=== PATIENT | male | born 1945 | race Caucasian/White ===

== ENCOUNTER → 2017-01-06 | Outpatient (CLI) | payer MEDICARE ==
[~2017-01-06] MED LIST: ALBU8.5H3 IH; ALBU8.5H3 INH; ALBU8.5H5 INH; AMIO200T PO; AMIO200T42 PO; BUDE10.22 IH; DIGO125T PO; DIGO125T6 PO; ENOX80SY5 SQ; FLUT16SP NS; FURO-92 PO; FURO40TA6 PO; GUAI600T22 PO; GUAI600T53 PO; LEVA15HF2 INH; LEVO100T5 PO; LEVO25TA4 PO; LISI2.5T PO; LISI5TAB7 PO; MAGN400T26 PO; MAGN400T7 PO; POTA20PA8 PO; POTA20TA14 PO; PRED10TA14 PO; SIMV20TA PO; SIMV20TA3 PO; SPIR25TA PO; SPIR25TA3 PO; TIOT18CA INH; WARF7.5T6 PO; WARF7.5T6 PO-COUM
== END | disposition home or self-care (01) ==
LOC: CFH 09:38
PROVIDERS: ATTEND Internal Medicine Cardiovascular Disease
DX: R06.02 Shortness of breath (principal); Z79.899 Other long term (current) drug therapy
CPT/HCPCS: 71020

== ENCOUNTER → 2017-06-22 | Outpatient (CLI) | payer MEDICARE ==
[~2017-06-22] MED LIST changes: -ALBU8.5H3 IH; -ALBU8.5H3 INH; +ALBU8.5H8 IH; +ALBU8.5H8 INH; -GUAI600T22 PO; +GUAI600T31 PO; -GUAI600T53 PO; +GUAI600T80 PO; -LEVA15HF2 INH; +LEVA15HF4 INH; +POTA20PA25 PO; -POTA20PA8 PO
== END | disposition home or self-care (01) ==
LOC: CFH 10:54
PROVIDERS: ATTEND Internal Medicine
DX: I10 Essential (primary) hypertension (principal); E78.2 Mixed hyperlipidemia; I48.0 Paroxysmal atrial fibrillation; I42.8 Other cardiomyopathies
CPT/HCPCS: 71020

== ENCOUNTER 2017-07-02 08:59 | Day surgery (SDC) | payer MEDICARE ==
[~2017-07-02] VITALS: Ht 172.7 cm; Wt 79.1 kg
[2017-07-02 09:30] VITALS: BP 168/106
[2017-07-02] MEDS ORDERED: BECL8.7A6 INH (09:45)
[2017-07-02] MEDS ORDERED: ALBU18HF INH (09:45)
[2017-07-02] MEDS ORDERED: EZET10TA18 PO (09:45)
[2017-07-02] MEDS ORDERED: RIVA20TA PO (09:47)
[2017-07-02] MEDS ORDERED: ALPR0.25 PO (09:47)
[2017-07-02 09:51] LABS: BASOPHILS # (AUTO) 0.04 x10^3/uL (0-0.1); BASOPHILS % (AUTO) 1 % (0-1); EOSINOPHILS # (AUTO) 0.09 x10^3/uL (0-0.4); EOSINOPHILS % (AUTO) 1 % (1-7); LYMPHOCYTES # (AUTO) 1.69 x10^3/uL (1-3.4); LYMPHOCYTES % (AUTO) 21 % (22-44); MD NO; MEAN CORPUSCULAR HEMOGLOBIN 31.2 pg (27.5-34.5); MEAN CORPUSCULAR HGB CONC 33.6 g/dL (33.2-36.2); MEAN CORPUSCULAR VOLUME 92.9 fL (81-97); MEAN PLATELET VOLUME 7.9 fL (7.4-10.4); MONOCYTES # (AUTO) 0.68 x10^3/uL (0.2-0.8); MONOCYTES % (AUTO) 9 % (2-9); NEUTROPHILS # (AUTO) 5.41 x10^3/uL (1.8-6.8); NEUTROPHILS % (AUTO) 68 % (42-75); PLATELET COUNT 226 x10^3/uL (130-400); RED BLOOD COUNT 5.46 x10^6/uL (4.38-5.82); RED CELL DISTRIBUTION WIDTH 14.7 % (9.4-14.8)
[2017-07-02] MEDS ORDERED: GUAI100G2 PO (09:51)
[2017-07-02] MEDS ORDERED: CHOL2000 PO (09:51)
[2017-07-02 10:00] LABS: ANION GAP 6 mmol/L (5-15); CALCIUM 8.5 mg/dL (8.5-10.1); CHLORIDE 110 mmol/L (98-107); CREATININE 1.33 mg/dL (0.7-1.3)
[2017-07-02] MEDS ORDERED: PROPOFOL 10 MG/ML, 20ML ONE (11:15)
== END 2017-07-02 12:33 ==
LOC: CACL 08:59
PROVIDERS: ATTEND Internal Medicine Cardiovascular Disease
DX: I48.92 Unspecified atrial flutter (principal); I10 Essential (primary) hypertension; E78.5 Hyperlipidemia, unspecified; E03.9 Hypothyroidism, unspecified; Z87.39 Personal history of other diseases of the musculoskeletal system and connective tissue
CPT/HCPCS: 36415; 80048; 85025; 92960; J2704

== ENCOUNTER → 2017-09-15 | Outpatient (CLI) | payer MEDICARE ==
[~2017-09-15] MED LIST changes: +ALBU18HF INH; +ALPR0.25 PO; +BECL8.7A6 INH; +CHOL2000 PO; -DIGO125T6 PO; +DIGO125T81 PO; +EZET10TA18 PO; +GUAI100G2 PO; +RIVA20TA PO
== END | disposition home or self-care (01) ==
LOC: LAB 10:46
PROVIDERS: ATTEND Internal Medicine Cardiovascular Disease
DX: I42.8 Other cardiomyopathies (principal)
CPT/HCPCS: 71046

== ENCOUNTER → 2017-09-21 | Outpatient (CLI) | payer MEDICARE | END | disposition home or self-care (01) | LOC: CVU 12:15 | PROVIDERS: ATTEND Internal Medicine Cardiovascular Disease | DX: I42.8 Other cardiomyopathies (principal); I48.91 Unspecified atrial fibrillation; I51.7 Cardiomegaly; E78.5 Hyperlipidemia, unspecified; Z87.891 Personal history of nicotine dependence | CPT/HCPCS: 93306 ==

== ENCOUNTER → 2018-04-25 | Outpatient (CLI) | payer MEDICARE ==
[~2018-04-25] MED LIST changes: -SPIR25TA3 PO; +SPIR25TA5 PO; +WARF7.5T46 PO; +WARF7.5T46 PO-COUM; -WARF7.5T6 PO; -WARF7.5T6 PO-COUM
== END | disposition home or self-care (01) ==
LOC: CFH 11:38
PROVIDERS: ATTEND Internal Medicine Cardiovascular Disease
DX: E78.2 Mixed hyperlipidemia (principal); I10 Essential (primary) hypertension
CPT/HCPCS: 71046

== ENCOUNTER → 2018-07-28 | Outpatient (CLI) | payer MEDICARE | END | disposition home or self-care (01) | LOC: CFH 08:32 | PROVIDERS: ATTEND Internal Medicine Critical Care Medicine | DX: R06.02 Shortness of breath (principal); G47.30 Sleep apnea, unspecified; E78.5 Hyperlipidemia, unspecified; E03.9 Hypothyroidism, unspecified; M17.10 Unilateral primary osteoarthritis, unspecified knee; Z79.899 Other long term (current) drug therapy | CPT/HCPCS: 71250 ==

== ENCOUNTER → 2018-11-22 | Outpatient (CLI) | payer MEDICARE | END | disposition home or self-care (01) | LOC: CFH 09:35 | PROVIDERS: ATTEND Internal Medicine Cardiovascular Disease | DX: I42.8 Other cardiomyopathies (principal); I34.0 Nonrheumatic mitral (valve) insufficiency; I48.0 Paroxysmal atrial fibrillation; I12.9 Hypertensive chronic kidney disease with stage 1 through stage 4 chronic kidney disease, or unspecified chronic kidney disease; N18.9 Chronic kidney disease, unspecified; R06.00 Dyspnea, unspecified; E03.9 Hypothyroidism, unspecified; E78.2 Mixed hyperlipidemia | CPT/HCPCS: 71046; 93306 ==

== ENCOUNTER 2019-06-03 21:12 | Inpatient (IN) | payer MEDICARE ==
[~2019-06-03] VITALS: Ht 172.7 cm; Wt 90.3 kg
[~2019-06-03 21:12] MED LIST changes: -EZET10TA18 PO; +EZET10TA70 PO; -FLUT16SP NS; +FLUT16SP24 NS; -MAGN400T7 PO; +MAGN400T9 PO
[2019-06-03] MEDS ORDERED: ALBUTEROL SULFATE 2.5 MG/3 ML ONE (21:19)
[2019-06-03] MEDS ORDERED: MAGNESIUM SULFATE PMX 2GM/50ML 50 ML ONE (21:29)
[2019-06-03] MEDS ORDERED: ALBUTEROL 0.5%, 20ML NPPB SCH (21:30)
[2019-06-03] MEDS ORDERED: MAGNESIUM SULFATE PMX 2GM/50ML 50 ML IV ONE (21:30)
[2019-06-03] MEDS ORDERED: SODIUM CHLORIDE FLUSH 10ML SYR IVF ONE (21:30)
[2019-06-03 21:43] LABS: BASOPHILS # (AUTO) 0.06 x10^3/uL (0-0.1); BASOPHILS % (AUTO) 1 % (0-1); EOSINOPHILS % (AUTO) 6 % (1-7); LYMPHOCYTES # (AUTO) 1.97 x10^3/uL (1-3.4); LYMPHOCYTES % (AUTO) 27 % (22-44); MD NO; MEAN CORPUSCULAR HEMOGLOBIN 32.3 pg (27.5-34.5); MEAN CORPUSCULAR HGB CONC 32.7 g/dL (33.2-36.2); MEAN CORPUSCULAR VOLUME 98.9 fL (81-97); MEAN PLATELET VOLUME 7.8 fL (7.4-10.4); MONOCYTES # (AUTO) 0.74 x10^3/uL (0.2-0.8); MONOCYTES % (AUTO) 10 % (2-9); NEUTROPHILS # (AUTO) 4.07 x10^3/uL (1.8-6.8); NEUTROPHILS % (AUTO) 56 % (42-75); PLATELET COUNT 245 x10^3/uL (130-400); RED BLOOD COUNT 5.21 x10^6/uL (4.38-5.82); RED CELL DISTRIBUTION WIDTH 13.5 % (9.4-14.8)
--- NOTE | 2019-06-03 21:44 | NUR ---
PT BIB [facility] FOR SOB. PT HAS A HISTORY OF COPD. PT REPORTS A RECENT COUGH. PT USED NEB, AND INHALERS AT HOME. PT WAS FOUND IN THE 70'S PULSE OX BY EMS. PT HAS A HISTORY OF AFIB AND REPORTS ON WEDNESDAY HE IS SUPPOSED TO GET CARDIOVERTED BY DR MOREJON. VS STABLE AT THIS TIME. BRICKLAYER'S ASSISTANT ON. AFIB NOTED. AT BEDSIDE. WILL CONTINUE TO MONITOR.
[2019-06-03] MEDS ORDERED: AMIO100T4 PO (21:47)
[2019-06-03] MEDS ORDERED: BEVESPI INHALER (21:49)
[2019-06-03 21:55] LABS: ALANINE AMINOTRANSFERASE 55 U/L (12-78); ANION GAP 4 mmol/L (5-15); CALCIUM 9.6 mg/dL (8.5-10.1); CHLORIDE 102 mmol/L (98-107); CREATININE 1.43 mg/dL (0.7-1.3)
--- NOTE | 2019-06-03 21:59 | NUR ---
RT IN ROOM BIPAP OFF PER DR OSMAN. NC ON AT 2L.
[2019-06-03 22:00] LABS: ALKALINE PHOSPHATASE 67 U/L (45-117); BILIRUBIN,TOTAL 0.3 mg/dL (0.2-1.0); INTERNATIONAL NORMALIZED RATIO 1.35 (0.93-1.1); TOTAL PROTEIN 7.9 g/dL (6.4-8.2); TROPONIN I < 0.015 ng/mL (0.000-0.045)
--- NOTE | 2019-06-03 22:01 | NUR ---
DR OSMAN IN ROOM UPDATING PATIENT
[2019-06-03] MEDS ORDERED: DILTIAZEM 5 MG/ML, 5ML ONE (22:09)
[2019-06-03] MEDS: methylPREDNISolone SOD SUCC 125 MG/2 ML IVPush SCH (22:30)
[2019-06-03] MEDS ORDERED: DILTIAZEM 5 MG/ML, 5ML IVPush ONE (22:30)
[2019-06-03] MEDS ORDERED: ACETAMINOPHEN 325 MG TABLET PO PRN (22:30)
[2019-06-03 22:55] LABS: TROPONIN I < 0.015 ng/mL (0.000-0.045)
--- NOTE | 2019-06-03 23:05 | NUR ---
REPORT CALLED TO [facility]
[2019-06-03 23:48] VITALS: BP 141/80
[2019-06-04] MEDS ORDERED: ALBUTEROL/IPRATROPIUM 2.5MG/0.5MG, 3 ML ONE ×2 (00:18→12:30)
[2019-06-04] MEDS ORDERED: SENNA/DOCUSATE TABLET PO PRN (02:00)
[2019-06-04 02:13] VITALS: BP 113/58
[2019-06-04] MEDS: DILTIAZEM 125 MG in SODIUM CHLORIDE 0.9% 100 ML IV SCH ×2 (02:18→11:08)
[2019-06-04 03:10] VITALS: BP 130/53
[2019-06-04 04:47] LABS: MD YES; MEAN CORPUSCULAR HEMOGLOBIN 32.3 pg (27.5-34.5); MEAN CORPUSCULAR HGB CONC 32.9 g/dL (33.2-36.2); MEAN PLATELET VOLUME 7.9 fL (7.4-10.4); PLATELET COUNT 236 x10^3/uL (130-400); RED BLOOD COUNT 4.84 x10^6/uL (4.38-5.82); RED CELL DISTRIBUTION WIDTH 13.6 % (9.4-14.8)
[2019-06-04 04:57] LABS: ALBUMIN 3.6 g/dL (3.4-5.0); ANION GAP 5 mmol/L (5-15); CALCIUM 9.2 mg/dL (8.5-10.1); CHLORIDE 103 mmol/L (98-107)
[2019-06-04 05:04] LABS: ALANINE AMINOTRANSFERASE 51 U/L (12-78); ALKALINE PHOSPHATASE 59 U/L (45-117); BILIRUBIN,TOTAL 0.7 mg/dL (0.2-1.0); CREATININE 1.46 mg/dL (0.7-1.3); TOTAL PROTEIN 7.3 g/dL (6.4-8.2); TROPONIN I < 0.015 ng/mL (0.000-0.045)
[2019-06-04] MEDS: methylPREDNISolone SOD SUCC 125 MG/2 ML IVPush SCH ×4 (05:06→23:34)
[2019-06-04 05:08] VITALS: BP 111/61
[2019-06-04] MEDS ORDERED: ALBUTEROL 0.5%, 20ML NPPB SCH (06:00)
[2019-06-04] MEDS ORDERED: ALBUTEROL SULFATE 2.5 MG/3 ML NPPB SCH (07:00)
[2019-06-04 08:43] VITALS: BP 128/59
[2019-06-04] MEDS: POLYETHYLENE GLYCOL 17 GM PACKET PO SCH (08:44)
[2019-06-04] MEDS ORDERED: RIVAROXABAN 20 MG TABLET PO SCH (10:30)
[2019-06-04] MEDS ORDERED: LEVOTHYROXINE 100 MCG TABLET PO SCH (10:30)
[2019-06-04] MEDS ORDERED: AMIODARONE 200 MG TABLET PO SCH (10:30)
[2019-06-04] MEDS ORDERED: PRED10TA PO (10:38)
[2019-06-04] MEDS ORDERED: GABA-826 PO (10:38)
[2019-06-04] MEDS ORDERED: TRIA1TAB3 PO (10:38)
[2019-06-04] MEDS ORDERED: AMIO200T42 PO (10:38)
[2019-06-04] MEDS ORDERED: DOXA2TAB9 PO (10:38)
[2019-06-04] MEDS: AMIODARONE 200 MG TABLET HOMEMEDPO SCH ×2 (12:00→20:19)
[2019-06-04] MEDS: EZETIMIBE 10 MG TABLET HOMEMEDPO SCH (12:00)
[2019-06-04] MEDS: LEVOTHYROXINE 100 MCG TABLET HOMEMEDPO SCH (12:00)
[2019-06-04] MEDS: ALBUTEROL/IPRATROPIUM 2.5MG/0.5MG, 3 ML NPPB SCH ×2 (12:44→15:10)
[2019-06-04 15:19] VITALS: BP 156/79
[2019-06-04] MEDS ORDERED: RIVAROXABAN 20 MG TABLET HOMEMEDPO SCH (17:00)
[2019-06-04 18:38] VITALS: BP 151/79
[2019-06-04] MEDS ORDERED: MAGNESIUM SULFATE PMX 2GM/50ML 50 ML IV ONE (19:00)
[2019-06-04] MEDS ORDERED: CYCL-259 PO (19:16)
[2019-06-04 19:35] LABS: BAND#(MANUAL) 0.11 x10^3/uL; BANDS%(MANUAL) 2 % (0-7); LYMPH#(MANUAL) 0.38 x10^3/uL (1-3.4); LYMPHS% (MANUAL) 7 % (22-44); MONOS#(MANUAL) 0.11 x10^3/uL (0.3-2.7); MONOS% (MANUAL) 2 % (2-9); SEG#(MANUAL) 4.81 x10^3/uL (1.8-6.8); SEGS% (MANUAL) 89 % (42-75)
[2019-06-04 19:37] LABS: <PLATELET ESTIMATE> ADEQUATE; <PLT MORPHOLOGY> NORMAL PLT MORPH
[2019-06-04] MEDS: DOXYCYCLINE 100MG TABLET PO SCH (20:19)
[2019-06-04] MEDS: BUDESONIDE 0.5 MG/2 ML INHA NPPB SCH (20:38)
[2019-06-05 01:18] VITALS: BP 137/70
[2019-06-05] MEDS: DILTIAZEM 125 MG in SODIUM CHLORIDE 0.9% 100 ML IV SCH (01:48)
[2019-06-05 02:07] VITALS: BP 117/65
[2019-06-05] MEDS: methylPREDNISolone SOD SUCC 125 MG/2 ML IVPush SCH ×4 (05:45→23:42)
[2019-06-05] MEDS: LEVOTHYROXINE 100 MCG TABLET HOMEMEDPO SCH (05:45)
[2019-06-05 05:50] LABS: CHLORIDE 106 mmol/L (98-107)
[2019-06-05 05:52] LABS: MEAN CORPUSCULAR HGB CONC 32.9 g/dL (33.2-36.2); MEAN CORPUSCULAR VOLUME 97.3 fL (81-97); MEAN PLATELET VOLUME 7.7 fL (7.4-10.4); PLATELET COUNT 252 x10^3/uL (130-400); RED BLOOD COUNT 4.73 x10^6/uL (4.38-5.82); RED CELL DISTRIBUTION WIDTH 13.5 % (9.4-14.8)
[2019-06-05 05:56] LABS: ANION GAP 5 mmol/L (5-15); CALCIUM 9.1 mg/dL (8.5-10.1); CREATININE 1.44 mg/dL (0.7-1.3)
[2019-06-05 06:31] LABS: BASOPHILS # (AUTO) 0.02 x10^3/uL (0-0.1); BASOPHILS % (AUTO) 0 % (0-1); EOSINOPHILS % (AUTO) 0 % (1-7); LYMPHOCYTES # (AUTO) 0.54 x10^3/uL (1-3.4); LYMPHOCYTES % (AUTO) 5 % (22-44); MD SCAN; MONOCYTES # (AUTO) 0.23 x10^3/uL (0.2-0.8); MONOCYTES % (AUTO) 2 % (2-9); NEUTROPHILS # (AUTO) 10.96 x10^3/uL (1.8-6.8); NEUTROPHILS % (AUTO) 93 % (42-75)
[2019-06-05 06:36] VITALS: BP 119/52
[2019-06-05] MEDS: ALBUTEROL/IPRATROPIUM 2.5MG/0.5MG, 3 ML NPPB SCH ×4 (07:00→19:27)
[2019-06-05] MEDS: BUDESONIDE 0.5 MG/2 ML INHA NPPB SCH ×2 (07:30→19:27)
[2019-06-05] MEDS ORDERED: EZETIMIBE 10 MG TABLET PO SCH (09:00)
[2019-06-05] MEDS: DOXYCYCLINE 100MG TABLET PO SCH ×2 (12:16→20:13)
[2019-06-05] MEDS: EZETIMIBE 10 MG TABLET HOMEMEDPO SCH (12:16)
[2019-06-05] MEDS: AMIODARONE 200 MG TABLET HOMEMEDPO SCH ×2 (12:17→20:13)
[2019-06-05 16:00] VITALS: BP 149/82
[2019-06-05] MEDS: RIVAROXABAN 15 MG TABLET PO SCH (16:51)
[2019-06-05] MEDS: POLYETHYLENE GLYCOL 17 GM PACKET PO SCH (16:51)
[2019-06-05 20:08] VITALS: BP 153/86
[2019-06-06 01:01] VITALS: BP 125/61
[2019-06-06] MEDS ORDERED: ALBUTEROL/IPRATROPIUM 2.5MG/0.5MG, 3 ML NPPB PRN (05:30)
[2019-06-06] MEDS: LEVOTHYROXINE 100 MCG TABLET HOMEMEDPO SCH (05:45)
[2019-06-06] MEDS: methylPREDNISolone SOD SUCC 125 MG/2 ML IVPush SCH ×3 (05:45→18:14)
[2019-06-06] MEDS: ALBUTEROL/IPRATROPIUM 2.5MG/0.5MG, 3 ML NPPB SCH ×4 (07:05→19:10)
[2019-06-06 08:48] VITALS: BP 114/65
[2019-06-06] MEDS: BUDESONIDE 0.5 MG/2 ML INHA NPPB SCH ×2 (09:00→19:10)
[2019-06-06] MEDS: AMIODARONE 200 MG TABLET HOMEMEDPO SCH ×2 (11:02→20:36)
[2019-06-06] MEDS: DOXYCYCLINE 100MG TABLET PO SCH ×2 (11:03→20:37)
[2019-06-06] MEDS: POLYETHYLENE GLYCOL 17 GM PACKET PO SCH (11:03)
[2019-06-06] MEDS: EZETIMIBE 10 MG TABLET HOMEMEDPO SCH (11:03)
[2019-06-06] MEDS ORDERED: MAGNESIUM CITRATE 300ML ORAL SOL PO PRN (13:00)
[2019-06-06 13:57] VITALS: BP 141/74
[2019-06-06] MEDS: RIVAROXABAN 15 MG TABLET PO SCH (18:14)
[2019-06-06 18:36] VITALS: BP 163/83
[2019-06-06 20:34] VITALS: BP 160/85
[2019-06-07 00:56] VITALS: BP 145/74
[2019-06-07] MEDS: methylPREDNISolone SOD SUCC 125 MG/2 ML IVPush SCH ×3 (02:38→20:48)
[2019-06-07] MEDS: LEVOTHYROXINE 100 MCG TABLET HOMEMEDPO SCH (06:03)
[2019-06-07] MEDS: ALBUTEROL/IPRATROPIUM 2.5MG/0.5MG, 3 ML NPPB SCH ×2 (07:40→11:20)
[2019-06-07] MEDS: BUDESONIDE 0.5 MG/2 ML INHA NPPB SCH ×2 (07:40→19:36)
[2019-06-07] MEDS: EZETIMIBE 10 MG TABLET HOMEMEDPO SCH (08:57)
[2019-06-07] MEDS: DOXYCYCLINE 100MG TABLET PO SCH ×2 (08:57→20:49)
[2019-06-07] MEDS: AMIODARONE 200 MG TABLET HOMEMEDPO SCH ×2 (08:58→20:48)
[2019-06-07] MEDS: POLYETHYLENE GLYCOL 17 GM PACKET PO SCH (08:58)
[2019-06-07 09:01] VITALS: BP 139/84
[2019-06-07] MEDS ORDERED: PROPOFOL 10 MG/ML, 20ML ONE (11:14)
[2019-06-07] MEDS ORDERED: ALBUTEROL SULFATE 2.5 MG/3 ML NPPB PRN (12:00)
[2019-06-07 12:51] VITALS: BP 138/86
[2019-06-07] MEDS: ALBUTEROL SULFATE 2.5 MG/3 ML NPPB SCH ×2 (16:23→19:36)
[2019-06-07] MEDS: RIVAROXABAN 15 MG TABLET PO SCH (17:00)
[2019-06-07 19:50] VITALS: BP 153/77
[2019-06-07 20:46] VITALS: BP 156/83
[2019-06-08] MEDS: methylPREDNISolone SOD SUCC 125 MG/2 ML IVPush SCH (04:05)
[2019-06-08 04:25] VITALS: BP 169/75
[2019-06-08] MEDS: LEVOTHYROXINE 100 MCG TABLET HOMEMEDPO SCH (05:31)
[2019-06-08 06:57] VITALS: BP 150/69
[2019-06-08] MEDS: ALBUTEROL SULFATE 2.5 MG/3 ML NPPB SCH ×3 (07:30→12:15)
[2019-06-08] MEDS ORDERED: PRED20TA PO (09:03)
[2019-06-08] MEDS: DOXYCYCLINE 100MG TABLET PO SCH (09:05)
[2019-06-08] MEDS: EZETIMIBE 10 MG TABLET HOMEMEDPO SCH (09:05)
[2019-06-08] MEDS: AMIODARONE 200 MG TABLET HOMEMEDPO SCH (09:05)
[2019-06-08] MEDS: POLYETHYLENE GLYCOL 17 GM PACKET PO SCH (09:05)
[2019-06-08] MEDS: BUDESONIDE 0.5 MG/2 ML INHA NPPB SCH (09:30)
[2019-06-08 12:36] VITALS: BP 155/77
== END 2019-06-08 16:15 | disposition home or self-care (01) | DRG 189 ==
LOC: ED 22:11 → SUATTDRO 22:11 → 5SO 22:12 → ED 22:12 → 5SO 23:40 → ED 23:40 → DCLOUNGE 06-08 15:32
PROVIDERS: ADMIT Internal Medicine; ATTEND Internal Medicine
PROC: 5A09357 Assistance with Respiratory Ventilation, Less than 24 Consecutive Hours, Continuous Positive Airway Pressure (ICD-10-PCS; principal; 2019-06-03)
PROC: 5A09357 Assistance with Respiratory Ventilation, Less than 24 Consecutive Hours, Continuous Positive Airway Pressure (ICD-10-PCS; 2019-06-05)
PROC: 5A09357 Assistance with Respiratory Ventilation, Less than 24 Consecutive Hours, Continuous Positive Airway Pressure (ICD-10-PCS; 2019-06-06)
PROC: 5A2204Z Restoration of Cardiac Rhythm, Single (ICD-10-PCS; 2019-06-06)
PROC: 5A09357 Assistance with Respiratory Ventilation, Less than 24 Consecutive Hours, Continuous Positive Airway Pressure (ICD-10-PCS; 2019-06-08)
DX: J96.01 Acute respiratory failure with hypoxia (principal); I50.33 Acute on chronic diastolic (congestive) heart failure; J44.1 Chronic obstructive pulmonary disease with (acute) exacerbation; I48.92 Unspecified atrial flutter; I13.0 Hypertensive heart and chronic kidney disease with heart failure and stage 1 through stage 4 chronic kidney disease, or unspecified chronic kidney disease; D68.59 Other primary thrombophilia; I42.9 Cardiomyopathy, unspecified; D75.89 Other specified diseases of blood and blood-forming organs; E78.5 Hyperlipidemia, unspecified; E89.0 Postprocedural hypothyroidism; F41.9 Anxiety disorder, unspecified; G47.33 Obstructive sleep apnea (adult) (pediatric); I48.0 Paroxysmal atrial fibrillation; N18.9 Chronic kidney disease, unspecified; Z79.01 Long term (current) use of anticoagulants; Z82.5 Family history of asthma and other chronic lower respiratory diseases; Z85.21 Personal history of malignant neoplasm of larynx; Z99.81 Dependence on supplemental oxygen; Z92.3 Personal history of irradiation; Z87.891 Personal history of nicotine dependence; J84.10 Pulmonary fibrosis, unspecified
CPT/HCPCS: 36415; 36600; 71045; 76770; 80048; 80053; 82803; 83735; 83880; 84484; 85025; 85610; 85730; 87040; 93005; 94640; 94644; 94660; 96365; 96375; G0378; J2704; J7613; J7620; J7626; J2930; J3475

== ENCOUNTER 2019-09-06 09:50 | Outpatient (CLI) | payer MEDICARE ==
[~2019-09-06 09:50] MED LIST changes: +AMIO100T4 PO; +BEVESPI INHALER; +CYCL-259 PO; -DIGO125T PO; +DIGO125T85 PO; +DOXA2TAB9 PO; +GABA-826 PO; +PRED10TA PO; +PRED20TA PO; +SIMV20TA19 PO; -SIMV20TA3 PO; +TRIA1TAB3 PO
== END 2019-09-06 23:59 | disposition home or self-care (01) ==
LOC: CFH 09:50
PROVIDERS: ATTEND Internal Medicine Cardiovascular Disease
DX: J43.9 Emphysema, unspecified (principal); I12.9 Hypertensive chronic kidney disease with stage 1 through stage 4 chronic kidney disease, or unspecified chronic kidney disease; N18.9 Chronic kidney disease, unspecified; I48.0 Paroxysmal atrial fibrillation; I42.8 Other cardiomyopathies; E78.2 Mixed hyperlipidemia; E03.9 Hypothyroidism, unspecified; R06.00 Dyspnea, unspecified
CPT/HCPCS: 71046

== ENCOUNTER 2019-09-13 09:58 | Outpatient (CLI) | payer MEDICARE | END 2019-09-13 23:59 | disposition home or self-care (01) | LOC: ROC 09:58 | PROVIDERS: ATTEND Radiology Radiation Oncology | DX: C61 Malignant neoplasm of prostate (principal) | CPT/HCPCS: 99214; G0463 ==

== ENCOUNTER 2020-01-22 13:38 | Outpatient (CLI) | payer MEDICARE ==
[~2020-01-22 13:38] MED LIST changes: +ALPR0.254 PO; +AMOX500T PO; +ASCO100T5 PO; -BEVESPI INHALER; +BEVESPI INHALER INH; +FLUT9.9S NS; +IPRA3AMP30 NEB; +MULT-797 PO
== END 2020-01-22 23:59 | disposition home or self-care (01) ==
LOC: LAB 13:38
PROVIDERS: ATTEND Internal Medicine
DX: J44.9 Chronic obstructive pulmonary disease, unspecified (principal); Z79.899 Other long term (current) drug therapy; Z79.2 Long term (current) use of antibiotics; Z72.89 Other problems related to lifestyle; Z87.891 Personal history of nicotine dependence; Z85.89 Personal history of malignant neoplasm of other organs and systems
CPT/HCPCS: 36600; 82803

== ENCOUNTER → 2020-02-08 | Outpatient (CLI) | payer MEDICARE | END | disposition home or self-care (01) | LOC: ROC 08:52 | PROVIDERS: ATTEND Radiology Radiation Oncology | DX: C61 Malignant neoplasm of prostate (principal) | CPT/HCPCS: 99212; G0463 ==

== ENCOUNTER 2020-02-20 14:22 | Inpatient (IN) | payer MEDICARE ==
[~2020-02-20] VITALS: Ht 172.7 cm; Wt 84.2 kg
--- NOTE | 2020-02-20 14:36 | NUR ---
PT BIB EMS FOR CHF AND COPD EXCAERBATION. PT CO OF SOB. PT JUST FINISHED COURSE OF ABX 3 DAYS AGO FOR PNEUMONIA. PT IS COUGHING UP YELLOW SPUTUM. PT IS ON 3LITERS OF O2 VIA NC, BASELINE IS 2L. PT 97%. HX OF INTUBATION FOR PNEUMONIA. EKG COMPLETE. PT RESTING IN GURNEY. CONNECTED TO MONITORING EQUIPMENT.
--- NOTE | 2020-02-20 15:11 | NUR ---
PT RESTING IN [facility]. VSS. NAD. AWAITING
[2020-02-20] MEDS ORDERED: AMIO100T4 PO (15:14)
[2020-02-20] MEDS ORDERED: FUROSEMIDE 40 MG/4 ML ONE (15:29)
[2020-02-20] MEDS ORDERED: SODIUM CHLORIDE FLUSH 10ML SYR IVF ONE (15:30)
[2020-02-20] MEDS ORDERED: FUROSEMIDE 40 MG/4 ML IVPush ONE (15:30)
--- NOTE | 2020-02-20 15:42 | NUR ---
PT MEDICATED PER MAR. IV STARTED
[2020-02-20] MEDS ORDERED: ALBUTEROL/IPRATROPIUM 2.5MG/0.5MG, 3 ML ONE (15:53)
[2020-02-20] MEDS: ALBUTEROL/IPRATROPIUM 2.5MG/0.5MG, 3 ML NPPB SCH ×2 (15:57→17:36)
--- NOTE | 2020-02-20 15:57 | NUR ---
BREATHING TX GIVEN. PT TOLERATING WELL
[2020-02-20 16:05] LABS: BASOPHILS # (AUTO) 0.06 x10^3/uL (0-0.1); BASOPHILS % (AUTO) 1 % (0-1); EOSINOPHILS # (AUTO) 0.57 x10^3/uL (0-0.4); EOSINOPHILS % (AUTO) 10 % (1-7); LYMPHOCYTES # (AUTO) 0.85 x10^3/uL (1-3.4); LYMPHOCYTES % (AUTO) 15 % (22-44); MD NO; MEAN CORPUSCULAR HGB CONC 33.3 g/dL (33.2-36.2); MEAN CORPUSCULAR VOLUME 96.1 fL (81-97); MEAN PLATELET VOLUME 7.5 fL (7.4-10.4); MONOCYTES # (AUTO) 0.69 x10^3/uL (0.2-0.8); MONOCYTES % (AUTO) 12 % (2-9); NEUTROPHILS # (AUTO) 3.46 x10^3/uL (1.8-6.8); NEUTROPHILS % (AUTO) 62 % (42-75); PLATELET COUNT 260 x10^3/uL (130-400); RED BLOOD COUNT 4.38 x10^6/uL (4.38-5.82)
[2020-02-20 16:15] LABS: ALANINE AMINOTRANSFERASE 41 U/L (12-78); ALBUMIN 3.8 g/dL (3.4-5.0); ANION GAP 3 mmol/L (5-15); CHLORIDE 103 mmol/L (98-107); CREATININE 1.39 mg/dL (0.7-1.3)
[2020-02-20 16:20] LABS: ALKALINE PHOSPHATASE 68 U/L (45-117); BILIRUBIN,TOTAL 0.5 mg/dL (0.2-1.0); TOTAL PROTEIN 7.2 g/dL (6.4-8.2); TROPONIN I < 0.015 ng/mL (0.000-0.045)
[2020-02-20] MEDS ORDERED: ONDANSETRON ODT 4 MG PO PRN (19:00)
[2020-02-20] MEDS ORDERED: BISACODYL 10 MG SUPP PR PRN (19:00)
[2020-02-20] MEDS ORDERED: POLYETHYLENE GLYCOL 17 GM PACKET PO PRN (19:00)
[2020-02-20] MEDS ORDERED: ACETAMINOPHEN 325 MG TABLET PO PRN (19:00)
[2020-02-20 19:59] VITALS: BP 118/80
[2020-02-20] MEDS: CHOLECALCIFEROL 1,000 UNIT TABLET PO SCH (20:56)
[2020-02-20] MEDS: methylPREDNISolone SOD SUCC 125 MG/2 ML IVPush SCH (20:58)
[2020-02-20] MEDS: DOXAZOSIN 2MG TABLET PO SCH (20:59)
[2020-02-20] MEDS: GABAPENTIN 100 MG CAPSULE PO SCH (20:59)
[2020-02-20] MEDS: GUAIFENESIN ER 600 MG TABLET PO SCH (21:00)
[2020-02-20] MEDS: ASCORBIC ACID 100 MG HOMEMEDPO SCH (21:00)
[2020-02-20] MEDS: FORMOTEROL INH SCH (21:00)
[2020-02-20] MEDS: GLYCOPYRROLATE INH SCH (21:00)
[2020-02-20] MEDS: SODIUM CHLORIDE FLUSH 10ML SYR IVF SCH (21:01)
[2020-02-20] MEDS: FLUTICASONE NASAL SPRAY 16GM NAS SCH (21:38)
[2020-02-20] MEDS: AMIODARONE 200 MG TABLET PO SCH (22:48)
[2020-02-20] MEDS: RIVAROXABAN 20 MG TABLET PO SCH (22:48)
[2020-02-20] MEDS: ALBUTEROL HFA 90 MCG/SPRAY INH SCH (23:49)
[2020-02-21 00:31] VITALS: BP 147/82
[2020-02-21] MEDS: methylPREDNISolone SOD SUCC 125 MG/2 ML IVPush SCH ×3 (02:41→18:19)
[2020-02-21 04:47] LABS: BASOPHILS % (AUTO) 0 % (0-1); EOSINOPHILS % (AUTO) 0 % (1-7); LYMPHOCYTES # (AUTO) 0.35 x10^3/uL (1-3.4); LYMPHOCYTES % (AUTO) 9 % (22-44); MD NO; MEAN CORPUSCULAR HEMOGLOBIN 31.6 pg (27.5-34.5); MEAN CORPUSCULAR HGB CONC 32.9 g/dL (33.2-36.2); MEAN CORPUSCULAR VOLUME 96.1 fL (81-97); MEAN PLATELET VOLUME 7.8 fL (7.4-10.4); MONOCYTES # (AUTO) 0.03 x10^3/uL (0.2-0.8); MONOCYTES % (AUTO) 1 % (2-9); NEUTROPHILS # (AUTO) 3.57 x10^3/uL (1.8-6.8); NEUTROPHILS % (AUTO) 90 % (42-75); PLATELET COUNT 259 x10^3/uL (130-400); RED BLOOD COUNT 4.29 x10^6/uL (4.38-5.82); RED CELL DISTRIBUTION WIDTH 12.8 % (9.4-14.8)
[2020-02-21 04:55] LABS: CALCIUM 9.5 mg/dL (8.5-10.1); CHLORIDE 102 mmol/L (98-107)
[2020-02-21 04:59] LABS: ANION GAP 8 mmol/L (5-15); CREATININE 1.56 mg/dL (0.7-1.3)
[2020-02-21] MEDS: ALBUTEROL HFA 90 MCG/SPRAY INH SCH ×4 (05:22→21:00)
[2020-02-21 06:58] VITALS: BP 139/78
[2020-02-21] MEDS: FLUTICASONE NASAL SPRAY 16GM NAS SCH ×2 (07:48→21:00)
[2020-02-21] MEDS: GLYCOPYRROLATE INH SCH ×2 (07:49→21:00)
[2020-02-21] MEDS: FORMOTEROL INH SCH ×2 (07:49→21:00)
[2020-02-21] MEDS: SODIUM CHLORIDE FLUSH 10ML SYR IVF SCH ×2 (07:50→21:00)
[2020-02-21] MEDS: SENNA/DOCUSATE TABLET PO SCH (07:51)
[2020-02-21] MEDS: FUROSEMIDE 20 MG/2 ML IV SCH ×2 (07:51→17:22)
[2020-02-21] MEDS: ASCORBIC ACID 100 MG HOMEMEDPO SCH ×2 (07:51→21:00)
[2020-02-21] MEDS: LEVOTHYROXINE 100 MCG TABLET PO SCH (07:51)
[2020-02-21] MEDS: DOXAZOSIN 2MG TABLET PO SCH ×2 (07:52→21:48)
[2020-02-21] MEDS: GABAPENTIN 100 MG CAPSULE PO SCH ×2 (07:52→21:47)
[2020-02-21] MEDS: MULTIVITAMIN 1 TABLET PO SCH (07:53)
[2020-02-21] MEDS: GUAIFENESIN ER 600 MG TABLET PO SCH ×2 (07:53→21:48)
[2020-02-21] MEDS: AMIODARONE 200 MG TABLET PO SCH ×2 (07:53→21:49)
[2020-02-21] MEDS: CHOLECALCIFEROL 1,000 UNIT TABLET PO SCH ×2 (07:53→21:00)
[2020-02-21] MEDS ORDERED: AMIODARONE 200 MG TABLET PO SCH (09:00)
[2020-02-21] MEDS ORDERED: LORazepam 2 MG/ML, 1ML IVPush ONE (11:00)
[2020-02-21 12:10] VITALS: BP 136/85
[2020-02-21] MEDS: RIVAROXABAN 20 MG TABLET PO SCH (17:22)
[2020-02-21 18:18] VITALS: BP 135/79
[2020-02-22 01:10] VITALS: BP 135/64
[2020-02-22] MEDS: methylPREDNISolone SOD SUCC 125 MG/2 ML IVPush SCH ×2 (03:00→10:48)
[2020-02-22 05:27] LABS: BASOPHILS % (AUTO) 0 % (0-1); EOSINOPHILS # (AUTO) 0.01 x10^3/uL (0-0.4); EOSINOPHILS % (AUTO) 0 % (1-7); LYMPHOCYTES # (AUTO) 0.62 x10^3/uL (1-3.4); LYMPHOCYTES % (AUTO) 6 % (22-44); MD NO; MEAN CORPUSCULAR HEMOGLOBIN 31.8 pg (27.5-34.5); MEAN CORPUSCULAR HGB CONC 33.1 g/dL (33.2-36.2); MEAN PLATELET VOLUME 7.6 fL (7.4-10.4); MONOCYTES % (AUTO) 7 % (2-9); NEUTROPHILS # (AUTO) 8.97 x10^3/uL (1.8-6.8); NEUTROPHILS % (AUTO) 87 % (42-75); PLATELET COUNT 249 x10^3/uL (130-400); RED BLOOD COUNT 4.07 x10^6/uL (4.38-5.82); RED CELL DISTRIBUTION WIDTH 13.1 % (9.4-14.8)
[2020-02-22 05:31] LABS: ANION GAP 5 mmol/L (5-15); CALCIUM 8.8 mg/dL (8.5-10.1); CHLORIDE 103 mmol/L (98-107); CREATININE 1.45 mg/dL (0.7-1.3)
[2020-02-22] MEDS: ALBUTEROL HFA 90 MCG/SPRAY INH SCH ×4 (05:40→21:00)
[2020-02-22] MEDS ORDERED: POTASSIUM CHLORIDE 20 MEQ TAB.ER.PRT PO ONE (06:30)
[2020-02-22] MEDS: FUROSEMIDE 20 MG/2 ML IV SCH (06:45)
[2020-02-22 07:56] VITALS: BP 126/66
[2020-02-22] MEDS: GLYCOPYRROLATE INH SCH ×2 (09:00→21:00)
[2020-02-22] MEDS: SENNA/DOCUSATE TABLET PO SCH (09:00)
[2020-02-22] MEDS: CHOLECALCIFEROL 1,000 UNIT TABLET PO SCH ×2 (09:00→21:00)
[2020-02-22] MEDS: FORMOTEROL INH SCH ×2 (09:00→21:00)
[2020-02-22] MEDS: MULTIVITAMIN 1 TABLET PO SCH (09:11)
[2020-02-22] MEDS: SODIUM CHLORIDE FLUSH 10ML SYR IVF SCH ×2 (09:11→21:00)
[2020-02-22] MEDS: LEVOTHYROXINE 100 MCG TABLET PO SCH (09:11)
[2020-02-22] MEDS: AMIODARONE 200 MG TABLET PO SCH ×2 (09:11→21:19)
[2020-02-22] MEDS: GABAPENTIN 100 MG CAPSULE PO SCH ×2 (09:11→21:19)
[2020-02-22] MEDS: GUAIFENESIN ER 600 MG TABLET PO SCH ×2 (09:11→21:20)
[2020-02-22] MEDS: FLUTICASONE NASAL SPRAY 16GM NAS SCH ×2 (09:12→21:00)
[2020-02-22] MEDS: DOXAZOSIN 2MG TABLET PO SCH ×2 (09:12→21:21)
[2020-02-22] MEDS: ASCORBIC ACID 250 MG TAB PO SCH ×2 (09:54→21:20)
[2020-02-22] MEDS ORDERED: ASCORBIC ACID 500 MG TABLET ONE (10:06)
[2020-02-22] MEDS: AMOXICILLIN/CLAV 875-125MG TABLET PO SCH ×2 (10:48→21:20)
[2020-02-22] MEDS: DOXYCYCLINE 100MG CAP PO SCH ×2 (10:48→21:21)
[2020-02-22] MEDS: TRIAMTERENE-HCTZ 37.5/25 MG TABLET PO SCH (11:14)
[2020-02-22 12:30] VITALS: BP 134/62
[2020-02-22] MEDS: RIVAROXABAN 20 MG TABLET PO SCH (16:54)
[2020-02-22 18:48] VITALS: BP 135/81
[2020-02-23 01:05] VITALS: BP 126/69
[2020-02-23] MEDS: ALBUTEROL HFA 90 MCG/SPRAY INH SCH ×2 (05:03→11:00)
[2020-02-23 07:17] VITALS: BP 140/62
[2020-02-23 07:32] LABS: BASOPHILS # (AUTO) 0.02 x10^3/uL (0-0.1); BASOPHILS % (AUTO) 0 % (0-1); EOSINOPHILS # (AUTO) 0.01 x10^3/uL (0-0.4); EOSINOPHILS % (AUTO) 0 % (1-7); LYMPHOCYTES # (AUTO) 0.85 x10^3/uL (1-3.4); LYMPHOCYTES % (AUTO) 8 % (22-44); MD NO; MEAN CORPUSCULAR HEMOGLOBIN 31.3 pg (27.5-34.5); MEAN CORPUSCULAR HGB CONC 32.2 g/dL (33.2-36.2); MEAN CORPUSCULAR VOLUME 97.3 fL (81-97); MEAN PLATELET VOLUME 7.4 fL (7.4-10.4); MONOCYTES # (AUTO) 0.96 x10^3/uL (0.2-0.8); MONOCYTES % (AUTO) 9 % (2-9); NEUTROPHILS % (AUTO) 82 % (42-75); PLATELET COUNT 270 x10^3/uL (130-400); RED BLOOD COUNT 4.36 x10^6/uL (4.38-5.82)
[2020-02-23 07:42] LABS: ANION GAP 4 mmol/L (5-15); CALCIUM 9.3 mg/dL (8.5-10.1); CHLORIDE 105 mmol/L (98-107); CREATININE 1.41 mg/dL (0.7-1.3)
[2020-02-23] MEDS ORDERED: DOXY100C2 PO (07:46)
[2020-02-23] MEDS ORDERED: PRED10TA PO (07:46)
[2020-02-23] MEDS ORDERED: AMOX1TAB12 PO (07:46)
[2020-02-23] MEDS: MULTIVITAMIN 1 TABLET PO SCH (07:56)
[2020-02-23] MEDS: GABAPENTIN 100 MG CAPSULE PO SCH (07:56)
[2020-02-23] MEDS: ASCORBIC ACID 250 MG TAB PO SCH (07:56)
[2020-02-23] MEDS: TRIAMTERENE-HCTZ 37.5/25 MG TABLET PO SCH (07:56)
[2020-02-23] MEDS: DOXYCYCLINE 100MG CAP PO SCH (07:58)
[2020-02-23] MEDS: DOXAZOSIN 2MG TABLET PO SCH (07:58)
[2020-02-23] MEDS: LEVOTHYROXINE 100 MCG TABLET PO SCH (07:58)
[2020-02-23] MEDS: GUAIFENESIN ER 600 MG TABLET PO SCH (07:58)
[2020-02-23] MEDS: CHOLECALCIFEROL 1,000 UNIT TABLET PO SCH (07:59)
[2020-02-23] MEDS ORDERED: prednisOLONE 15 MG/5 ML ORAL SOLN PO SCH (08:00)
[2020-02-23] MEDS: AMIODARONE 200 MG TABLET PO SCH (08:00)
[2020-02-23] MEDS: FLUTICASONE NASAL SPRAY 16GM NAS SCH (08:02)
[2020-02-23] MEDS: GLYCOPYRROLATE INH SCH (08:03)
[2020-02-23] MEDS: SODIUM CHLORIDE FLUSH 10ML SYR IVF SCH (08:03)
[2020-02-23] MEDS: FORMOTEROL INH SCH (08:03)
[2020-02-23] MEDS: SENNA/DOCUSATE TABLET PO SCH (08:04)
[2020-02-23] MEDS: AMOXICILLIN/CLAV 875-125MG TABLET PO SCH (10:56)
== END 2020-02-23 13:05 | disposition home or self-care (01) | DRG 291 ==
LOC: ED 14:52 → EDIP 17:29 → 4WST 19:57 → DCLOUNGE 02-23 12:37
PROVIDERS: ADMIT Internal Medicine; ATTEND Internal Medicine
DX: I13.0 Hypertensive heart and chronic kidney disease with heart failure and stage 1 through stage 4 chronic kidney disease, or unspecified chronic kidney disease (principal); I50.33 Acute on chronic diastolic (congestive) heart failure; J18.9 Pneumonia, unspecified organism; J44.1 Chronic obstructive pulmonary disease with (acute) exacerbation; J96.10 Chronic respiratory failure, unspecified whether with hypoxia or hypercapnia; I48.20 Chronic atrial fibrillation, unspecified; D68.69 Other thrombophilia; G62.9 Polyneuropathy, unspecified; E03.9 Hypothyroidism, unspecified; M79.89 Other specified soft tissue disorders; Z85.46 Personal history of malignant neoplasm of prostate; Z85.21 Personal history of malignant neoplasm of larynx; D72.829 Elevated white blood cell count, unspecified; J34.2 Deviated nasal septum; J32.9 Chronic sinusitis, unspecified; J32.0 Chronic maxillary sinusitis; Z87.891 Personal history of nicotine dependence; N18.9 Chronic kidney disease, unspecified
CPT/HCPCS: 36415; 70450; 71045; 71250; 76536; 80048; 80053; 83605; 83735; 83880; 84484; 85025; 93005; 93306; 96374; G0378; J1940; J2930; J7510; J7512

== ENCOUNTER → 2020-06-25 | Outpatient (CLI) | payer MEDICARE ==
[~2020-06-25] MED LIST changes: +AMOX1TAB12 PO; +DOXY100C2 PO
== END | disposition home or self-care (01) ==
LOC: CFH 12:38
PROVIDERS: ATTEND Otolaryngology
DX: J34.2 Deviated nasal septum (principal); J34.3 Hypertrophy of nasal turbinates; J34.89 Other specified disorders of nose and nasal sinuses
CPT/HCPCS: 70486

== ENCOUNTER 2020-07-17 07:05 | Outpatient (CLI) | payer MEDICARE | END 2020-07-17 23:59 | disposition home or self-care (01) | LOC: ROC 07:05 | PROVIDERS: ATTEND Radiology Radiation Oncology | DX: Z08 Encounter for follow-up examination after completed treatment for malignant neoplasm (principal); Z85.46 Personal history of malignant neoplasm of prostate | CPT/HCPCS: 99441 ==

== ENCOUNTER 2020-11-08 12:19 | Outpatient (CLI) | payer MEDICARE ==
[~2020-11-08 12:19] MED LIST changes: -CYCL-259 PO; +CYCL10TA2 PO
== END 2020-11-08 23:59 | disposition home or self-care (01) ==
LOC: CFH 12:19
PROVIDERS: ATTEND Internal Medicine Cardiovascular Disease
DX: J84.10 Pulmonary fibrosis, unspecified (principal); J44.9 Chronic obstructive pulmonary disease, unspecified; I50.33 Acute on chronic diastolic (congestive) heart failure; J96.11 Chronic respiratory failure with hypoxia; I13.0 Hypertensive heart and chronic kidney disease with heart failure and stage 1 through stage 4 chronic kidney disease, or unspecified chronic kidney disease
CPT/HCPCS: 71046

== ENCOUNTER → 2021-01-21 | Outpatient (CLI) | payer MEDICARE | END | disposition home or self-care (01) | LOC: ROC 07:19 | PROVIDERS: ATTEND Radiology Radiation Oncology | DX: Z08 Encounter for follow-up examination after completed treatment for malignant neoplasm (principal); Z85.46 Personal history of malignant neoplasm of prostate; Z85.21 Personal history of malignant neoplasm of larynx | CPT/HCPCS: 99212; G0463 ==

== ENCOUNTER 2021-03-11 14:39 | Outpatient (CLI) | payer MEDICARE ==
[~2021-03-11 14:39] MED LIST changes: -DOXY100C2 PO; +DOXY100C5 PO; -LISI2.5T PO; +LISI2.5T12 PO
== END 2021-03-11 23:59 | disposition home or self-care (01) ==
LOC: CFH 14:39
PROVIDERS: ATTEND Internal Medicine Cardiovascular Disease
DX: I08.0 Rheumatic disorders of both mitral and aortic valves (principal); I42.8 Other cardiomyopathies
CPT/HCPCS: 93306